=== PATIENT | male | born 1995 | race Two or more races ===

== ENCOUNTER → 2019-12-15 | Emergency (ER) | payer OTHER ==
[~2019-12-15] VITALS: Ht 175.3 cm; Wt 81.6 kg
[~2019-12-15] MED LIST: HYDROcodone-ACET 10/325MG TAB PO ONE; IBUPROFEN 800 MG TAB PO ONE
[2019-12-15 17:27] VITALS: BP 125/66
== END | disposition home or self-care (01) ==
LOC: ER 17:09
DX: S33.5XXA Sprain of ligaments of lumbar spine, initial encounter (principal); V00.311A Fall from snowboard, initial encounter; Y93.89 Activity, other specified; Y92.89 Other specified places as the place of occurrence of the external cause; Y99.8 Other external cause status
CPT/HCPCS: 72100